=== PATIENT | male | born 1980 | race Caucasian/White ===

== ENCOUNTER 2017-01-28 18:50 | Inpatient (IN) | payer MEDICAID, OTHER ==
[~2017-01-28] VITALS: Ht 167.6 cm; Wt 91.4 kg
[~2017-01-28 18:50] MED LIST: ASPI-781 PO; ATOR20TA38 PO; CLOP75TA27 PO; METO-448 PO; NIT4 SL
[2017-01-28] MEDS ORDERED: NITROGLYCERIN 2% 1 GM OINT PKT TD STA (22:35)
[2017-01-28] MEDS ORDERED: morphine 2 MG INJ IV STA (22:35)
[2017-01-28] MEDS ORDERED: ONDANSETRON 4 MG INJ IV STA (22:35)
[2017-01-28 23:06] LABS: ADD SCAN DIFF NO
[2017-01-28 23:12] LABS: BASOPHILS % 0.3 % (0.0-2.0); EOSINOPHILS % 0.1 % (0.0-7.0); HEMATOCRIT 43.7 % (42.0-52.0); HEMOGLOBIN 15.3 g/dl (14.0-18.0); LYMPHOCYTES % 25.8 % (15.0-51.0); MEAN CORPUSCULAR HEMOGLOBIN 30.2 pg (29.0-33.0); MEAN CORPUSCULAR VOLUME 86.4 fl (82.0-101.0); MEAN PLATELET VOLUME 8.1 fl (7.4-10.4); MONOCYTE # 0.9 10^3/ul (0.3-0.9); NEUTROPHIL # 7.6 10^3/ul (1.6-7.5); NEUTROPHILS % 65.6 % (39.0-77.0); PLATELET COUNT 302 10^3/UL (140-415); RED BLOOD COUNT 5.06 10^6/ul (4.70-6.10); WHITE BLOOD COUNT 11.6 10^3/ul (4.8-10.8)
--- NOTE | 2017-01-28 23:15 | RADRPT ---
PROCEDURE: XR Chest. CLINICAL INDICATION: Chest pain. TECHNIQUE: Single frontal view of the chest was obtained COMPARISON: 11/18/2015. FINDINGS: Cardiomegaly. Portable technique, the patient body habitus and hypoinflated lungs accentuate pulmon noreen vascular markings. Lung volumes are otherwise mildly increased over interval. Decreased bibasi lar atelectasis. The lungs are otherwise clear. There is no pleural effusion or pneumothorax. IMPRESSION: Improved lung inflation with decreased bibasilar atelectasis over interval since 11/18/2015. RPTAT: [facility] Physician Davide Date Time Electronically viewed and signed by Physician Davide on 01/28/2017 23:15 RS/
[2017-01-28 23:19] LABS: INR 1.04; PARTIAL THROMBOPLASTIN TIME 29.7 Sec (25.0-35.0); PROTIME 13.6 Sec (12.2-14.2); PT RATIO 1.1
[2017-01-28 23:20] LABS: ALBUMIN 4.7 g/dl (3.3-4.9)
[2017-01-28 23:21] LABS: CHLORIDE 102 mmol/L (97-110); POTASSIUM 3.9 mmol/L (3.5-5.1); SODIUM 138 mmol/L (135-144)
[2017-01-28 23:23] LABS: ALBUMIN/GLOBULIN RATIO 1.42; ALKALINE PHOSPHATASE 86 IU/L (42-121); ANION GAP 16 (8-16); ASPARTATE AMINO TRANSFERASE 38 IU/L (15-46); BILIRUBIN,INDIRECT 0.5 mg/dl (0-1.1); BILIRUBIN,TOTAL 0.5 mg/dl (0.2-1.3); CARBON DIOXIDE 24 mmol/L (21-31); CREATININE 0.74 mg/dl (0.61-1.24)
[2017-01-28 23:24] LABS: ALANINE AMINOTRANSFERASE 30 IU/L (13-69); BLOOD UREA NITROGEN 10 mg/dl (7-20); CALCIUM 9.1 mg/dl (8.4-10.2); GLUCOSE 106 mg/dl (70-220)
[2017-01-28 23:32] LABS: B-TYPE NATRIURETIC PEPTIDE 55 PG/ML (0-125)
[2017-01-28 23:41] LABS: TROPONIN-I < 0.010 ng/ml (0.00-0.12)
[2017-01-29] VITALS (11 sets, daily range): BP systolic 118–135; BP diastolic 67–91; PULSE 64–90; RESP 12–19; TEMP 98.2; Ht 167.6 cm; Wt 91.4 kg
--- NOTE | 2017-01-29 00:17 | ERA ---
ER Documentation Chief Complaint Date/Time DATE: 01/29/17 TIME: 00:16 Chief Complaint CP SINCE 6:30. GIVEN NITRO W/ RELIEF. BILATERAL ARM NUMBNESS HPI This is a 36-year-old male who comes with chest pain since 630. Patient given some nitro mild relief. Is complaining of more numbness greater on the left side. Chest pain was pressure-like and substernal. 5 out of 10 when he had a. Down to 2 out of 10 now. Patient has history of previous cardiac stenting and history of hypercholesterolemia ROS All systems reviewed and are negative except as per history of present illness. Medications Home Meds Active Scripts Nitroglycerin* (Nitrostat*) 25 Tab Subl, 1 TAB SL Q5M Y for CHEST PAIN for 60 Days, TAB.SL Prov:CARLOS DUBOIS MD 11/22/15 Metoprolol Tartrate* (Lopressor*) 25 Mg Tab, 25 MG PO BID for 90 Days, TAB Prov:CARLOS DUBOIS MD 11/22/15 Clopidogrel Bisulfate (Clopidogrel) 75 Mg Tab, 75 MG PO DAILY for 90 Days, TAB Prov:CARLOS DUBOIS MD 11/22/15 Atorvastatin Calcium* (Atorvastatin Calcium*) 20 Mg Tab, 40 MG PO HS for 90 Days , TAB Prov:CARLOS DUBOIS MD 11/22/15 Aspirin* (Ecotrin*) 325 Mg Tabec, 325 MG PO DAILY for 90 Days, TAB Prov:CARLOS DUBOIS MD 11/22/15 Allergies Allergies: Coded Allergies: No Known Allergy (Unverified , 11/21/15) PMhx/Soc History of Surgery: No Anesthesia Reaction: Yes Hx Neurological Disorder: No Hx Respiratory Disorders: No Hx Cardiac Disorders: Yes (1 year ago NSTEMI, stent placement ) Hx Psychiatric Problems: No Hx Miscellaneous Medical Probl: No Hx Alcohol Use: Yes Hx Substance Use: No Hx Tobacco Use: No Smoking Status: Never smoker Physical Exam Vitals Vital Signs Date Time Temp Pulse Resp B/P Pulse Ox O2 Delivery O2 Flow Rate FiO2 01/28/17 23:25 98.6 68 20 120/78 100 Room Air 01/28/17 19:26 99.1 83 18 162/92 99 Physical Exam Const: [] Head: Atraumatic Eyes: Normal Conjunctiva ENT: Normal External Ears, Nose and Mouth. Neck: Full range of motion..~ No meningismus. Resp: Clear to auscultation bilaterally Cardio: Regular rate and rhythm, no murmurs Abd: Soft, non tender, non distended. Normal bowel sounds Skin: No petechiae or rashes Back: No midline or flank tenderness Ext: No cyanosis, or edema Neur: Awake and alert Psych: Normal Mood and Affect Result Diagram: 01/28/17224901/28/172249 Results 24 hrs Laboratory Tests Test 01/28/17 22:50 White Blood Count 11.610^3/ul Red Blood Count 5.0610^6/ul Hemoglobin 15.3g/dl Hematocrit 43.7% Mean Corpuscular Volume 86.4fl Mean Corpuscular Hemoglobin 30.2pg Mean Corpuscular Hemoglobin Concent 35.0g/dl Red Cell Distribution Width 12.0% Platelet Count 28238^3/UL Mean Platelet Volume 8.1fl Neutrophils % 65.6% Lymphocytes % 25.8% Monocytes % 8.0% Eosinophils % 0.1% Basophils % 0.3% Nucleated Red Blood Cells % 0.0/100WBC Neutrophils # 7.610^3/ul Lymphocytes # 3.010^3/ul Monocytes # 0.910^3/ul Eosinophils # 0.010^3/ul Basophils # 0.010^3/ul Nucleated Red Blood Cells # 0.010^3/ul Prothrombin Time 13.6Sec Prothrombin Time Ratio 1.1 INR International Normalized Ratio 1.04 Activated Partial Thromboplast Time 29.7Sec Sodium Level 138mmol/L Potassium Level 3.9mmol/L Chloride Level 102mmol/L Carbon Dioxide Level 24mmol/L Anion Gap 16 Blood Urea Nitrogen 10mg/dl Creatinine 0.74mg/dl Glucose Level 106mg/dl Calcium Level 9.1mg/dl Total Bilirubin 0.5mg/dl Direct Bilirubin 0.00mg/dl Indirect Bilirubin 0.5mg/dl Aspartate Amino Transf (AST/SGOT) 38IU/L Alanine Aminotransferase (ALT/SGPT) 30IU/L Alkaline Phosphatase 86IU/L Troponin I < 0.010ng/ml B-Type Natriuretic Peptide 55PG/ML Total Protein 8.0g/dl Albumin 4.7g/dl Globulin 3.30g/dl Albumin/Globulin Ratio 1.42 Current Medications Medications (Trade) Dose Ordered Sig/Benita Route PRN Reason Start Time Stop Time Status Last Admin Dose Admin Nitroglycerin (Nitroglycerin 2% Oint) 1 inch ONCE STAT TD 01/28/17 22:35 01/28/17 22:37 DC 01/28/17 23:16 Morphine Sulfate (morphine) 2 mg ONCE STAT IV 01/28/17 22:35 01/28/17 22:37 DC 01/28/17 23:17 Ondansetron HCl (Zofran Inj) 4 mg ONCE STAT IV 01/28/17 22:35 01/28/17 22:37 DC 01/28/17 23:16 Procedures/MDM EKG: Rate/Rhythm: Normal Sinus Rhythm QRS, ST, T-waves: No changes consistent w/ acute ischemia Impression: No evidence of ischemia or arrhythmia Chest X-ray 1V Interpreted by me: Soft Tissue: No acute abnormalities Bones: No acute abnormalities Mediastinum/Cardiac Silhouette/Lungs: No acute abnormalities Patient's symptoms are concerning for cardiac cause will require inpatient workup and continuous monitoring. Further w/u for ischemia, arrhythmia, PE or dissection will be deferred to the inpatient team. Accepting Care Team: Current data and ongoing care discussed. Time: 12 AM Primary Provider: Hospitalist Consulting: [XOXOXO] Outstanding Data: none Departure Diagnosis: Primary Impression: Chest pain Qualified Code: R07.9 - Chest pain, unspecified type Condition: Serious AICHA JOHNSON Jan 29, 2017 00:17
[2017-01-29] MEDS ORDERED: NITROGLYCERIN (SL) 0.4 MG TAB SL PRN (03:30)
[2017-01-29] MEDS ORDERED: ACETAMINOPHEN 325 MG TAB PO PRN (03:30)
[2017-01-29] MEDS ORDERED: HYDROCODONE/APAP (5/325) TAB PO PRN (03:30)
[2017-01-29] MEDS ORDERED: ONDANSETRON 4 MG TAB PO PRN (03:30)
[2017-01-29] MEDS ORDERED: morphine 4 MG/ML VIAL IV PRN (03:30)
[2017-01-29] MEDS ORDERED: NACL 0.9% 3 ML SYG IV SCH (03:30)
[2017-01-29] MEDS ORDERED: METOCLOPRAMIDE 10 MG INJ IV PRN (03:30)
[2017-01-29 05:47] LABS: ADD SCAN DIFF NO
[2017-01-29 05:56] LABS: BASOPHILS % 0.4 % (0.0-2.0); EOSINOPHILS % 0.4 % (0.0-7.0); HEMOGLOBIN 14.4 g/dl (14.0-18.0); LYMPHOCYTES # 2.3 10^3/ul (0.8-2.9); LYMPHOCYTES % 27.2 % (15.0-51.0); MEAN CORPUSCULAR HGB CONC 35.1 g/dl (32.0-37.0); MEAN CORPUSCULAR VOLUME 88.2 fl (82.0-101.0); MEAN PLATELET VOLUME 8.2 fl (7.4-10.4); MONOCYTE # 0.7 10^3/ul (0.3-0.9); MONOCYTES % 8.7 % (0.0-11.0); NEUTROPHIL # 5.3 10^3/ul (1.6-7.5); NEUTROPHILS % 63.2 % (39.0-77.0); PLATELET COUNT 268 10^3/UL (140-415); RED BLOOD COUNT 4.65 10^6/ul (4.70-6.10); RED CELL DISTRIBUTION WIDTH 12.3 % (11.5-14.5); WHITE BLOOD COUNT 8.4 10^3/ul (4.8-10.8)
[2017-01-29 06:20] LABS: POTASSIUM 3.7 mmol/L (3.5-5.1)
[2017-01-29 06:23] LABS: CALCIUM 8.6 mg/dl (8.4-10.2); CREATINE KINASE 128 IU/L (23-200); CREATININE 0.78 mg/dl (0.61-1.24)
[2017-01-29 06:24] LABS: MAGNESIUM 1.8 mg/dl (1.7-2.5)
[2017-01-29 06:32] LABS: CK-MB 0.66 ng/ml (0.0-2.4); TROPONIN-I < 0.012 ng/ml (0.00-0.12)
[2017-01-29] MEDS: ENOXAPARIN 40 MG/0.4 ML SYG SC SCH (10:33)
[2017-01-29 12:30] LABS: CREATINE KINASE 116 IU/L (23-200)
[2017-01-29 12:39] LABS: CK-MB 0.46 ng/ml (0.0-2.4)
[2017-01-29] MEDS: FAMOTIDINE 20 MG TAB PO SCH ×2 (12:41→20:52)
[2017-01-29] MEDS: METOPROLOL 25 MG TAB PO SCH ×2 (12:41→20:52)
[2017-01-29 12:48] LABS: TROPONIN-I < 0.010 ng/ml (0.00-0.12)
[2017-01-29] MEDS ORDERED: FUROSEMIDE 20 MG INJ IV ONE (14:30)
--- NOTE | 2017-01-29 17:35 | CONS ---
DATE OF ADMISSION: 01/29/2017 DATE OF CONSULTATION: 01/29/2017 CARDIOLOGY CONSULTATION REASON FOR CONSULTATION: Chest pain, assess for acute coronary syndrome. REQUESTING PHYSICIAN: Dr. Martines from the hospitalist service. HISTORY OF PRESENT ILLNESS: Mr. Britt is a 36-year-old male with a history of prior myocardial inf arction, status post PTCA and stent placement to [place] with drug-eluting stent 11/22/2015, hypert ension, and dyslipidemia who presents with complaints of left-sided substernal chest pain described as a stabbing sensation with associated radiation to his left arm. Initially, upon arrival, tempera ture of 99.1, blood pressure elevated at 162/92, pulse 83, respiratory rate 18, saturating 99%. The patient's labs revealed a white blood cell count of 11.6, hemoglobin of 15.3, platelet count of 302 . Sodium 138, potassium 3.9, creatinine of 0.74, BUN 10. Troponin negative. BNP of 55. INR of 1. 0. The patient underwent a chest x-ray revealing improved lung inflation and decreased bibasilar at electasis. The patient's electrocardiogram revealed normal sinus rhythm, rate of 79, right axis dev iation, and T-wave flattening isolated to aVL. The patient was subsequently admitted to the floor a nd since admit to the floor denies ongoing chest pain. PAST MEDICAL HISTORY: As above in HPI. MEDICATIONS CURRENTLY IN HOSPITAL: 1. Aspirin 81 mg daily. 2. Plavix 75 mg daily. 3. Lipitor 40 mg at bedtime. 4. Pepcid 20 mg p.o. b.i.d. 5. Metoprolol 25 mg p.o. b.i.d. 6. Lovenox 40 mg subcu daily. 7. Nitroglycerin p.r.n. 8. Tylenol p.r.n. 9. [place] p.r.n. 10. Morphine p.r.n. ALLERGIES: NO KNOWN DRUG ALLERGIES. SOCIAL HISTORY: No tobacco, ETOH, or illicit drug use. FAMILY HISTORY: No history of sudden cardiac or early CAD. REVIEW OF SYSTEMS: As above in HPI. CONSTITUTIONAL: No fevers, chills. PULMONARY: No current shortness of breath. CARDIOVASCULAR: Intermittent chest pain. GASTROINTESTINAL: No vomiting. GENITOURINARY: No hematuria. MUSCULOSKELETAL: Degenerative joint disease. PSYCHIATRIC: The patient denies depression. NEUROLOGIC: No documented history of CVA. PHYSICAL EXAMINATION VITAL SIGNS: Temperature of 98.6, blood pressure most recently of 118/67, pulse 85, respiratory rat e 18, saturating 98%. GENERAL: The patient is alert, awake, in no acute distress. NECK: JVP approximately 8 cm of water. CHEST: Fair air movement throughout. HEART: Regular rate and rhythm, normal S1, S2, I/ systolic murmur, nondisplaced PMI. ABDOMEN: Positive bowel sounds, soft. EXTREMITIES: No edema, 1+ pulses bilaterally, posterior tibial. LABORATORY DATA: As above in HPI. No further labs for my review at this time. Additionally from [facility], white cell count of 8.4, hemoglobin 14.4, platelet count 268. Sodium 141, potassium 3.7, crea tinine 0.78, BUN 12. INR 1.0. IMAGING STUDIES: As above in HPI. No further imaging studies for my review at this time. ECG: As above in HPI. No further electrocardiograms for my review at this time. IMPRESSION: 1. Chest pain, assess for acute coronary syndrome. 2. History of percutaneous transluminal coronary angioplasty and stent placement October 2015 with drug-eluting stent to diagonal. Assess for acute coronary syndrome. 3. Hypertension. 4. Dyslipidemia. 5. History of myocardial infarction in October 2015. RECOMMENDATIONS: 1. At this time, would maintain the patient on telemetry monitoring to follow rhythm and rate contr ol closely. 2. Would continue the patient's current aspirin and Plavix for stent patency and prevention of furt her cardiovascular events. 3. Continue the patient's current beta blayen following blood pressure closely. 4. Continue the patient's current statin and check fasting lipid panel and adjust accordingly. 5. We will follow the patient's 2D echo being done to assess ejection fraction, wall motion, and an y major valve abnormalities and given the patient's history of stent placement with recurrent chest pain and myocardial infarction, I believe the patient would benefit from further risk stratification as an inpatient and thus will be scheduled to have a Lexiscan stress test take place first thing in the morning. Thank you for allowing me to take part in the care of this patient. I will continue to follow along very closely with you with further recommendations to be made as the patient progresses through his inpatient hospital clinical course. Dictated By: MARIANNA COWAN/MORALES Conf#: [id number] DID#: [id number] CC: SHERINE MARTINES MD;*End*
--- NOTE | 2017-01-29 17:50 | RADRPT ---
Echocardiogram Report Patient Name: KAR RADER Gender: Male Date: 1980 Study Date: 29-Jan-2017 Spa Associate: [facility] Location: [id number] Ref. Physician: SHERINE MARTINES Quality: Adequate Procedures: Transthoracic echocardiogram with complete 2D, M-Mode, and doppler examination. Indications: Chest Pain. 2D/M Mode Doppler Measurement Value Normal Ranges Measurement Value Normal Ranges LVIDd 2D 4.5 3.5 - 5.6 cm AV Peak Rene 1.6 m/sec LVIDs 2D 2.7 2.1 - 4.1 cm AV Peak PG 10.0 mmHg FS 2D 41.1 % LVOT Peak Rene 0.9 m/sec LVPWd 2D 1.3 0.6 - 1.1 cm LVOT Peak PG 4.0 mmHg IVSd 2D 1.3 0.6 - 1.1 cm MV E Peak Rene 0.7 m/sec IVS/LVPW 2D 1.0 MV A Peak Rene 0.7 m/sec AoR Diam 2D 2.7 2.0 - 3.7 cm MV E/A 1.0 LA/Ao 2D 1 0 - 1 MV Decel Time 173 msec EDV 2D 91.1 cm3 MV E/A 1.0 ESV 2D 18.6 cm3 LA Dimen 2D 3.3 2.3 - 4.0 cm Findings Left Ventricle: Normal left ventricular systolic function. Normal left ventricular cavity size. Mild concentric left ventricular hypertrophy. Ejection fraction is visually estimated at 60 %. Abnormal Diastolic Function. Right Ventricle: Normal right ventricular size. Normal right ventricular systolic function. Left Atrium: The left atrium is normal in size. Right Atrium: The right atrium is normal in size. Mitral Valve: Mild mitral leaflet calcification. Mild mitral annular calcification. Trace mitral regurgitation. Aortic Valve: Aortic valve not well visualized. Tricuspid Valve: Normal appearance and function of the tricuspid valve with trace physiologic regurgitation. Pulmonic Valve: There is trace pulmonic regurgitation. Pericardium: Normal pericardium with no significant pericardial effusion. Aorta: Normal aortic root. IVC: Normal size and normal respiratory collapse consistent with normal right atrial pressure. Conclusions 1.Normal left ventricular systolic function. Normal left ventricular cavity size. Mild concentric left ventricular hypertrophy. Ejection fraction is visually estimated at 60 %. Abnormal Diastolic Function. 2.Mild mitral leaflet calcification. Mild mitral annular calcification. Trace mitral regurgitation. 3.Normal appearance and function of the tricuspid valve with trace physiologic regurgitation. 4.There is trace pulmonic regurgitation. Electronically Signed By: Charles Perez 29-Jan-2017 17:49:32 -0700 Patient Name: KAR RADER Study Date: 29-Jan-2017 [id number]
[2017-01-29] MEDS: ATORVASTATIN 40 MG TAB PO SCH (20:51)
[2017-01-30] VITALS (11 sets, daily range): BP systolic 115–132; BP diastolic 68–93; PULSE 53–80; RESP 18–19
[2017-01-30 08:34] LABS: CHOL/HDL RATIO 3.3 RATIO
[2017-01-30] MEDS: ENOXAPARIN 40 MG/0.4 ML SYG SC SCH (09:12)
[2017-01-30] MEDS ORDERED: REGADENOSON 0.4 MG/5 ML SYG ONE (10:48)
--- NOTE | 2017-01-30 11:42 | CONS ---
Date/Time of Note Date/Time of Note DATE: 01/30/17 TIME: 11:38 Assessment/Plan Assessment/Plan Chief Complaint/Hosp Course IMPRESSION: 1. Chest pain, assess for acute coronary syndrome.-negative troponin x3/NL EF by echo 2. History of percutaneous transluminal coronary angioplasty and stent placement October 2015 with drug-eluting stent to diagonal.-negative troponin x 3 3. Hypertension. 4. Dyslipidemia. 5. History of myocardial infarction in October 2015. Recc: -Tele -serial ecg's -Continue asa/plavix/statin/BB -Lexiscan stress test today Problems: Consultation Date/Type/Reason Admit Date/Time Jan 29, 2017 at 00:08 Initial Consult Date 01/29/2017 Type of Consultation: Cardiology Reason for Consultation Chest pain Referring Provider: ADAM GOVEA MD Exam/Review of Systems Vital Signs Vitals Vital Signs Date Time Temp Pulse Resp B/P Pulse Ox O2 Delivery O2 Flow Rate FiO2 01/30/17 08:00 53 01/30/17 07:37 98.4 18 116/74 96 01/29/17 07:03 Room Air Intake and Output 01/29/17 01/29/17 01/30/17 15:00 23:00 07:00 Intake Total 700 ml 500 ml Balance 700 ml 500 ml Exam Review of Systems: CONSTITUTIONAL: No fevers, chills. PULMONARY: No sob CARDIOVASCULAR: No chest pain/palpitations GASTROINTESTINAL: No nausea/vomiting. GENITOURINARY: No hematuria/dysuria. MUSCULOSKELETAL: No myagias/arthalgias. PSYCHIATRIC: The patient denies depression. NEUROLOGIC: No weakness Constitutional: alert, oriented Psych: no complaints Head: normocephalic ENMT: mucosa pink and moist Neck: jvd (8 cm water), supple Respiratory: diminished breath sounds Cardiovascular: regular rate and rhythm Gastrointestinal: non-tender, soft Musculoskeletal: muscle tone (normal) Extremities: edema (none) Neurological: other (No focal deficits) Results Result Diagram: 01/29/17 0525 01/29/17 0525 Results 24 hrs Laboratory Tests Test 01/29/17 11:40 01/30/17 07:19 Creatine Kinase 116 Creatine Kinase Index 0.4 Creatinine Kinase MB (Mass) 0.46 Troponin I < 0.010 Triglycerides Level 342 H Cholesterol Level 129 LDL Cholesterol, Calculated 23 HDL Cholesterol 38 Cholesterol/HDL Ratio 3.3 Medications Medications Current Medications Ondansetron HCl (Zofran Tab) 4 mg Q6H PRN PO NAUSEA AND/OR VOMITING; Start 01/29 at 03:30 Metoclopramide HCl (Reglan) 10 mg Q6H PRN IV NAUSEA AND/OR VOMITING Last administered on 01/29/17 07:59; Admin Dose 10 MG; Start 01/29/17 at 03:30 Nitroglycerin (Nitroglycerin (Sl Tab) 0.4 Mg) 1 tab Q5M PRN SL CHEST PAIN; Start 01/29/17 at 03:30 Acetaminophen (Tylenol Tab) 650 mg Q6H PRN PO PAIN LEVEL 1-3 OR FEVER Last administered on 01/29/17 16:09; Admin Dose 650 MG; Start 01/29/17 at 03:30 Acetaminophen/ Hydrocodone Bitart ([place] (5/325)) 1 tab Q6H PRN PO PAIN LEVEL 4 -6 Last administered on 01/29/17 05:13; Admin Dose 1 TAB; Start 01/29/17 at 03:30 Morphine Sulfate (morphine) 4 mg Q4H PRN IV PAIN LEVEL 7-10; Start 01/29/17 at 03:30 Enoxaparin Sodium (Lovenox) 40 mg DAILY SC Last administered on 01/30/17 09:12 ; Admin Dose 40 MG; Start 01/29/17 at 09:00 Famotidine (Pepcid) 20 mg BID PO Last administered on 01/29/17 20:52; Admin Dose 20 MG; Start 01/29/17 at 12:00 Aspirin (Halfprin) 81 mg DAILY PO ; Start 01/30/17 at 09:00 Atorvastatin Calcium (Lipitor) 40 mg HS PO Last administered on 01/29/17 20:51 ; Admin Dose 40 MG; Start 01/29/17 at 21:00 Clopidogrel Bisulfate (plaVIX) 75 mg DAILY PO ; Start 01/30/17 at 09:00 Metoprolol Tartrate (Lopressor) 25 mg BID PO Last administered on 01/29/17 20: 52; Admin Dose 25 MG; Start 01/29/17 at 12:00 MARIANNA ECHOLS Jan 30, 2017 11:42
--- NOTE | 2017-01-30 12:15 | CONS ---
DATE OF ADMISSION: 01/29/2017 DATE OF CONSULTATION: 01/30/2017 LEXISCAN CARDIOLITE STRESS TEST, ELECTROCARDIOGRAM PORTION BASELINE VITAL SIGNS AND ELECTROCARDIOGRAM: Pulse 64, blood pressure 150/92. Electrocardiogram rev eals sinus rhythm, rate of 64, normal axis, normal intervals, isolated T-wave inversion in lead aVL. PROCEDURE: The patient underwent standard Lexiscan infusion protocol over 10 seconds, followed by r adiolabeled tracer. The patient's test was stopped due to completion of protocol. Maximum achieved blood pressure 153/88. Maximum achieved heart rate during the test 98. ECG FINDINGS: The patient did not develop any new Lexiscan-induced ST or T-wave changes from baseli ne abnormalities. No documented PVCs. SYMPTOMS: The patient had no complaints of chest pain or shortness breath during stress testing. IMPRESSION: 1. No Lexiscan-induced ST or T-wave changes from baseline abnormalities which are diagnostic for ca rdiac ischemia. 2. No complaints of chest pain or shortness of breath during stress testing. 3. No documented premature ventricular contractions during stress testing. 4. Report of nuclear images to follow in separate dictation. Dictated By: MARIANNA COWAN/MORALES Conf#: [id number] DID#: [id number] CC: ADAM GOVEA MD;*EndCC*
--- NOTE | 2017-01-30 14:18 | RADRPT ---
PROCEDURE: Nuclear medicine myocardial stress and rest scan. CLINICAL INDICATION: Chest pain. TECHNIQUE: The patient was stressed with 0.4 mg IV Lexiscan. 9.6 mCi technetium 99m Tetrofosmin ( Myoview) was administered rest. 28.7 mCi technetium 99m Tetrofosmin (Myoview) was administered dur ing stress. Images were obtained and reconstructed in the short axis, horizontal long axis, and tiffani tical long axis. Gated images were obtained and ejection fraction was calculated. COMPARISON: No prior study is available for comparison. FINDINGS: The stress and rest images demonstrate a small region of reversibility in the mid anterior wall. Th e uptake there is otherwise normal throughout with no other reversible or fixed abnormality. The lef t ventricle diameter is normal. There is no evidence of transient ischemic dilatation. Wall motion is normal. There is normal wall thickening during systole. Ejection fraction at stress is 55%. IMPRESSION: 1. Small region of reversibility in the mid anterior wall which may indicate stress induced myocard ial ischemia. 2. Otherwise normal study with no other region of ischemia or infarct. 3. Ejection fraction at stress is 55%. RPTAT: QQ .Ricardo Bourne MD, Date Time Electronically viewed and signed by .Ricardo Bourne MD, on 01/30/2017 14:18 .R/
[2017-01-30] MEDS ORDERED: METO-448 PO (15:22)
[2017-01-30] MEDS ORDERED: ATOR20TA38 PO (15:22)
[2017-01-30] MEDS ORDERED: ASPI-664 PO (15:22)
[2017-01-30] MEDS ORDERED: CLOP75TA27 PO (15:22)
--- NOTE | 2017-01-30 15:41 | PN ---
Date/Time of Note Date/Time of Note DATE: 01/30/17 TIME: 15:37 Assessment/Plan VTE Prophylaxis VTE Prophylaxis Intervention: LMWH Lines/Catheters IV Catheter Type (from Nrsg): Saline Lock Assessment/Plan Assessment/Plan 1. 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 Dyslipidemia: cont statin 3. Obesity: calorie controlled diet Cont supportive care Propylaxis: lovenox / pepcid Subjective 24 Hr Interval Summary Free Text/Dictation had mild CP upon cmpletion of stress test Exam/Review of Systems Vital Signs Vitals Vital Signs Date Time Temp Pulse Resp B/P Pulse Ox O2 Delivery O2 Flow Rate FiO2 01/30/17 13:20 66 01/30/17 07:37 98.4 18 116/74 96 01/29/17 07:03 Room Air Intake and Output 01/29/17 01/29/17 01/30/17 14:59 22:59 06:59 Intake Total 700 ml 500 ml Balance 700 ml 500 ml Exam Constitutional: alert, obese, oriented Head: atraumatic, normocephalic Eyes: PERRL ENMT: mucosa pink and moist Neck: supple Respiratory: clear to auscultation, normal air movement Cardiovascular: nl pulses, regular rate and rhythm Gastrointestinal: bowel sounds, non-tender, soft Extremities: No edema Neurological: nl mental status, nl speech, nl strength Results Result Diagram: 01/29/17 0525 01/29/17 0525 Results 24 hrs Laboratory Tests Test 01/30/17 07:19 Triglycerides Level 342 H Cholesterol Level 129 LDL Cholesterol, Calculated 23 HDL Cholesterol 38 Cholesterol/HDL Ratio 3.3 Medications Medications Current Medications Ondansetron HCl (Zofran Tab) 4 mg Q6H PRN PO NAUSEA AND/OR VOMITING; Start 01/29 at 03:30 Metoclopramide HCl (Reglan) 10 mg Q6H PRN IV NAUSEA AND/OR VOMITING Last administered on 01/29/17t 07:59; Admin Dose 10 MG; Start 01/29/17 at 03:30 Nitroglycerin (Nitroglycerin (Sl Tab) 0.4 Mg) 1 tab Q5M PRN SL CHEST PAIN; Start 01/29/17 at 03:30 Acetaminophen (Tylenol Tab) 650 mg Q6H PRN PO PAIN LEVEL 1-3 OR FEVER Last administered on 01/29/17 16:09; Admin Dose 650 MG; Start 01/29/17 at 03:30 Acetaminophen/ Hydrocodone Bitart ([place] (5/325)) 1 tab Q6H PRN PO PAIN LEVEL 4 -6 Last administered on 01/29/17 05:13; Admin Dose 1 TAB; Start 01/29/17 at 03:30 Morphine Sulfate (morphine) 4 mg Q4H PRN IV PAIN LEVEL 7-10; Start 01/29/17 at 03:30 Enoxaparin Sodium (Lovenox) 40 mg DAILY SC Last administered on 01/30/17 09:12 ; Admin Dose 40 MG; Start 01/29/17 at 09:00 Famotidine (Pepcid) 20 mg BID PO Last administered on 01/29/17 20:52; Admin Dose 20 MG; Start 01/29/17 at 12:00 Aspirin (Halfprin) 81 mg DAILY PO ; Start 01/30/17 at 09:00 Atorvastatin Calcium (Lipitor) 40 mg HS PO Last administered on 01/29/17 20:51 ; Admin Dose 40 MG; Start 01/29/17 at 21:00 Clopidogrel Bisulfate (plaVIX) 75 mg DAILY PO ; Start 01/30/17 at 09:00 Metoprolol Tartrate (Lopressor) 25 mg BID PO Last administered on 01/29/17 20: 52; Admin Dose 25 MG; Start 01/29/17 at 12:00 Procedures Procedures PROCEDURE: Nuclear medicine myocardial stress and rest scan. CLINICAL INDICATION: Chest pain. TECHNIQUE: The patient was stressed with 0.4 mg IV Lexiscan. 9.6 mCi technetium 99m Tetrofosmin (Myoview) was administered rest. 28.7 mCi technetium 99m Tetrofosmin (Myoview) was administered during stress. Images were obtained and reconstructed in the short axis, horizontal long axis, and vertical long axis. Gated images were obtained and ejection fraction was calculated. COMPARISON: No prior study is available for comparison. FINDINGS: The stress and rest images demonstrate a small region of reversibility in the mid anterior wall. The uptake there is otherwise normal throughout with no other reversible or fixed abnormality. The left ventricle diameter is normal. There is no evidence of transient ischemic dilatation. Wall motion is normal. There is normal wall thickening during systole. Ejection fraction at stress is 55%. IMPRESSION: 1. Small region of reversibility in the mid anterior wall which may indicate stress induced myocardial ischemia. 2. Otherwise normal study with no other region of ischemia or infarct. 3. Ejection fraction at stress is 55%. RPTAT: QQ .Ricardo Bourne MD, MD Date Time Electronically viewed and signed by .Ricardo Bourne MD, MD on 01/30/2017 14:18 .R/ CC: MARIANNA ECHOLS [place] M. Jan 30, 2017 15:41
[2017-01-30] MEDS: FAMOTIDINE 20 MG TAB PO SCH ×2 (17:26→20:52)
[2017-01-30] MEDS: CLOPIDOGREL 75 MG TAB PO SCH (17:26)
[2017-01-30] MEDS: METOPROLOL 25 MG TAB PO SCH ×2 (17:27→20:53)
[2017-01-30] MEDS: ASPIRIN (EC) 81 MG TAB PO SCH (17:27)
--- NOTE | 2017-01-30 19:58 | HP ---
Date/Time of Note Date/Time of Note DATE: 01/30/17 TIME: 19:58 Assessment/Plan VTE Prophylaxis VTE Prophylaxis Intervention: other (Lovenox) Lines/Catheters IV Catheter Type (from Nrsg): Saline Lock Assessment/Plan Assessment/Plan 1) Chest Pain - Admit to Telemetry - Serial Cardiac Enzymes - Repeat EKG in AM - CONSULT: Cardiology HPI/ROS Admit Date/Time Admit Date/Time Jan 29, 2017 at 00:08 Hx of Present Illness This is a 36-year-old male who presents with chest pain since 630 pm. THe pain is not quite the same as what he had prior to undergoing Cardiac Stent Placement in 10/2015. NTG provided some relief, and on my arrival, his chest pain, which he describes as more of a pressure is 4-5/10. Initially, the pain was 10/10, associated with sewating and nausea. No radiation of the pain. The arm numbness he initially had has resolved. Prior to this event, he was in his usual state of health ROS General: Admits: Denies: Fever, Chills, Poor Appetite, Generalized Body Aches Eyes: Admits: Denies: Blurry Vision, Double Vision HENT: Admits: Denies: Ear Pain/Pressure, Runny/Stuffy Nose, Sore Throat Cardiovascular: Admits: Chest Pain, Denies: Palpitations, Leg Swelling Pulmonary: Admits: Denies: Cough, Wheeze, Shortness of Breath Gastrointestinal: Admits: Denies: Abdominal Pain, Nausea, Vomiting, Diarrhea, Blood in Stool, Black-Colored Stool Urogenital: Admits: Denies: Burning with Urination, Urinary Frequency, Blood in Urine Musculoskeletal: Admits: Denies: Joint Pain, Joint Swelling, Muscle Pain Neurological: Admits: Numbness, resolved Denies: Headache, Dizziness, Tingling, Shooting Pains Integumentary: Admits: Denies: Rash, Itch Psychological: no complaints PMH/Family/Social Past Medical History NSTAEMI - 10/2015 No Diabetes Past Surgical History Cardiac Stent Placement - 10/2015 Social History Alcohol Use: occasionally Smoking Status: Never smoker Drug Use: none Exam/Review of Systems Vital Signs Vitals Vital Signs Date Time Temp Pulse Resp B/P Pulse Ox O2 Delivery O2 Flow Rate FiO2 01/30/17 16:00 74 01/30/17 15:43 98.2 18 130/93 95 01/29/17 07:03 Room Air Intake and Output 01/29/17 01/29/17 01/30/17 15:00 23:00 07:00 Intake Total 700 ml 500 ml Balance 700 ml 500 ml Exam Exam General: WD/WN male, alert and oriented, in mild distress due to pain and concern for situation Eyes: Sclera White, EOMI HENT: Normocephalic/Atraumatic, External Ears/Nose Normal, Moist Mucus Membranes Neck: Supple, Trachea Midline Cardiovascular: Normal Rate, Regular Rhythm, Normal S1 and S2, No Murmur, No Extra Sounds. Radial pulse +2/4. No pedal Edema. Pulmonary: Clear to Auscultation Bilaterally, Normal Respiratory Effort, No Rales, Rhonchi or Wheezes Gastrointestinal: Normoactive Bowel Sounds, Soft, Non-Tender/Non-Distended, No Hepatosplenomegaly Appreciated, No Pulsatile Masses Urogenital: Deferred Musculoskeletal: Normal Muscle Bulk and Tone Neurological: CN II - XII Grossly Intact, Non-Focal, Speech Normal Integumentary: Normal Moisture and Temperature, Good Turgor, No Jaundice, No Rash Lymphatic: No Cervical Lymphadenopathy Psychiatric: Appropriate Mood and Affect, Good Eye Contact Labs Result Diagram: 01/29/1752401/29/17 05 Medications Medications Home Meds Active Scripts Nitroglycerin* (Nitrostat*) 25 Tab Subl, 1 TAB SL Q5M Y for CHEST PAIN for 60 Days, TAB.SL Prov:CARLOS DUBOIS MD 11/22/15 Metoprolol Tartrate* (Lopressor*) 25 Mg Tab, 25 MG PO BID for 90 Days, TAB Prov:CARLOS DUBOIS MD 11/22/15 Clopidogrel Bisulfate (Clopidogrel) 75 Mg Tab, 75 MG PO DAILY for 90 Days, TAB Prov:CARLOS DUBOIS MD 11/22/15 Atorvastatin Calcium* (Atorvastatin Calcium*) 20 Mg Tab, 40 MG PO HS for 90 Days , TAB Prov:CARLOS DUBOIS MD 11/22/15 Aspirin* (Ecotrin*) 325 Mg Tabec, 325 MG PO DAILY for 90 Days, TAB Prov:CARLOS DUBOIS MD 11/22/15 Current Medications Medications (Trade) Dose Ordered Sig/Benita Route PRN Reason Start Time Stop Time Status Last Admin Dose Admin Nitroglycerin (Nitroglycerin 2% Oint) 1 inch ONCE STAT TD 01/28/17 22:35 01/28/17 22:37 DC 01/28/17 23:16 Morphine Sulfate (morphine) 2 mg ONCE STAT IV 01/28/17 22:35 01/28/17 22:37 DC 01/28/17 23:17 Ondansetron HCl (Zofran Inj) 4 mg ONCE STAT IV 01/28/17 22:35 01/28/17 22:37 DC 01/28/17 23:16 Procedures Procedures Laboratory Tests Test 01/28/17 22:50 White Blood Count 11.610^3/ul Red Blood Count 5.0610^6/ul Hemoglobin 15.3g/dl Hematocrit 43.7% Mean Corpuscular Volume 86.4fl Mean Corpuscular Hemoglobin 30.2pg Mean Corpuscular Hemoglobin Concent 35.0g/dl Red Cell Distribution Width 12.0% Platelet Count 04061^3/UL Mean Platelet Volume 8.1fl Neutrophils % 65.6% Lymphocytes % 25.8% Monocytes % 8.0% Eosinophils % 0.1% Basophils % 0.3% Nucleated Red Blood Cells % 0.0/100WBC Neutrophils # 7.610^3/ul Lymphocytes # 3.010^3/ul Monocytes # 0.910^3/ul Eosinophils # 0.010^3/ul Basophils # 0.010^3/ul Nucleated Red Blood Cells # 0.010^3/ul Prothrombin Time 13.6Sec Prothrombin Time Ratio 1.1 INR International Normalized Ratio 1.04 Activated Partial Thromboplast Time 29.7Sec Sodium Level 138mmol/L Potassium Level 3.9mmol/L Chloride Level 102mmol/L Carbon Dioxide Level 24mmol/L Anion Gap 16 Blood Urea Nitrogen 10mg/dl Creatinine 0.74mg/dl Glucose Level 106mg/dl Calcium Level 9.1mg/dl Total Bilirubin 0.5mg/dl Direct Bilirubin 0.00mg/dl Indirect Bilirubin 0.5mg/dl Aspartate Amino Transf (AST/SGOT) 38IU/L Alanine Aminotransferase (ALT/SGPT) 30IU/L Alkaline Phosphatase 86IU/L Troponin I < 0.010ng/ml B-Type Natriuretic Peptide 55PG/ML Total Protein 8.0g/dl Albumin 4.7g/dl Globulin 3.30g/dl Albumin/Globulin Ratio 1.42 EKG: Interpreted by ER Physician. I concur. Rate/Rhythm: Normal Sinus Rhythm QRS, ST, T-waves: No changes consistent w/ acute ischemia Impression: No evidence of ischemia or arrhythmia PROCEDURE: XR Chest. CLINICAL INDICATION: Chest pain. TECHNIQUE: Single frontal view of the chest was obtained COMPARISON: 11/18/2015. IMPRESSION: Improved lung inflation with decreased bibasilar atelectasis over interval since 11/18/2015. DANILO MATHUR DO Jan 30, 2017 19:58
[2017-01-30] MEDS: ATORVASTATIN 40 MG TAB PO SCH (20:52)
[2017-01-31] VITALS (54 sets, daily range): BP systolic 110–141; BP diastolic 67–96; PULSE 56–80; RESP 15–25
[2017-01-31] MEDS ORDERED: NITROGLYCERIN (IC) 100 MCG/ML INJ ONE (08:02)
[2017-01-31] MEDS ORDERED: IODIXANOL LOCM 100 ML BTL ONE (08:02)
[2017-01-31] MEDS ORDERED: HEPARIN 1000 UNITS/ML 10 ML INJ ONE (08:02)
[2017-01-31] MEDS ORDERED: LIDOCAINE 1% (MDV) 20 ML INJ ONE (08:02)
[2017-01-31] MEDS ORDERED: VERAPAMIL 5 MG INJ ONE (08:02)
[2017-01-31] MEDS ORDERED: FENTAnyl 50 MCG/ML VIAL ONE (08:03)
[2017-01-31] MEDS ORDERED: MIDAZOLAM 1 MG/ML 2 ML INJ ONE (08:03)
[2017-01-31] MEDS: FAMOTIDINE 20 MG TAB PO SCH ×2 (09:00→20:33)
[2017-01-31] MEDS: ENOXAPARIN 40 MG/0.4 ML SYG SC SCH (09:00)
[2017-01-31] MEDS: CLOPIDOGREL 75 MG TAB PO SCH (09:00)
[2017-01-31] MEDS: ASPIRIN (EC) 81 MG TAB PO SCH (09:00)
[2017-01-31] MEDS: METOPROLOL 25 MG TAB PO SCH ×2 (09:00→20:33)
[2017-01-31] MEDS ORDERED: BIVALIRUDIN 250MG /NS 50 ML 50 ML IVPB ONE (10:00)
[2017-01-31] MEDS ORDERED: ADENOSINE 90 MG in SOD CHLORIDE 0.9% 90 ML IV SCH (10:00)
[2017-01-31] MEDS ORDERED: CLOPIDOGREL 300 MG TAB ONE (10:07)
[2017-01-31] MEDS ORDERED: ASPIRIN 325 MG TAB ONE (10:07)
[2017-01-31] MEDS ORDERED: SOD CHLORIDE 0.9% 1,000 ML IV SCH (10:52)
[2017-01-31] MEDS ORDERED: ACETAMINOPHEN 325 MG TAB PO PRN (11:00)
[2017-01-31] MEDS ORDERED: OXYCODONE/ACETAMINOPHEN (5/325) TAB PO PRN (11:00)
[2017-01-31] MEDS ORDERED: ZOLPIDEM 5 MG TAB PO PRN (11:00)
--- NOTE | 2017-01-31 12:05 | CONS ---
DATE OF ADMISSION: 01/29/2017 DATE OF CONSULTATION: 01/30/2017 TYPE OF PROCEDURE: 1. Left heart catheterization. 2. Coronary angiography. 3. Percutaneous transluminal coronary angioplasty with placement of Synergy stents x2, a 3.0 x 32 m m and 3.5 x 20 mm. 4. Measurement of left ventricular end-diastolic pressure. ATTENDING PHYSICIAN: Marianna Perez MD REFERRING PHYSICIAN: Sherine Martines MD from the hospitalist service. INDICATION: Chest pain refractory to medical therapy with positive stress test findings for ischemi a. TYPE OF ANESTHESIA: Conscious and local. BRIEF HISTORY AND HOSPITAL COURSE: Mr. Britt is a 36-year-old male with a history of hypertension, dyslipidemia, coronary artery disease, status post prior PTCA to diagonal, who initially presented with complaints of recurrent substernal chest pain. The patient subsequently ruled out for myocardi al infarction, underwent a cardiac stress test revealing positive ischemia. Given these findings, t he patient referred for and presents today in order to undergo left heart catheterization to assess the possibility of significant obstructive coronary artery disease lending to his symptoms of chest pain and subsequent positive stress test findings. PROCEDURE: After informed consent was obtained, the patient was brought to the [facility] cardiac catheterization lab where his right radial area was prepped and draped in the usual fashion. Lidocaine 2% was infiltrated into the right radial area in order to achieve adequate anes thesia. Using modified Seldinger technique, the radial artery was cannulated and a 6-Zimbabwean arteria l sheath was placed. A 6-Zimbabwean JL3.5 catheter was used to cannulate the left main coronary ostium. With contrast injection, multiple views of the left coronary arterial system obtained. JL3 removed over a guidewire and a JR4 was used to cannulate the right coronary arterial ostium. With contrast injection, multiple views of the right coronary arterial system obtained. JR4 was then used to microstrategy architect developer ss the LV. Left ventricular end-diastolic pressure was measured, pulled back across the aortic valv e. Subsequently, at this time, given the findings of significant obstructive lesions in the right c oronary artery, we moved directly into our interventional procedure. The patient was given an Angio max bolus continuous infusion. A JR3.5 was used to cannulate the right coronary arterial ostium. A 0.014 Balance Middleweight guidewire was passed distal to the lesion. The lesion was pretreated wit h a 2.0 x 20 mm balloon up to 16 to 18 atmospheres x2 and removed. The lesion was then stented with a 3.0 x 32 mm drug-eluting stent to 16 atmospheres x2 and then post-dilated with a noncompliant Nancy rge 3.5 x 12 mm up to 16 to 18 atmospheres x2. Pre-inflation was then made in the proximal portion with a 3.5 balloon on removal, and then this proximal lesion was stented with a 3.5 x 20 mm drug-elu ting stent up to 16 atmospheres x2 and post-dilated with a noncompliant 3.75 up to 18 atmospheres x2 . This was removed. The patient was given 200 mcg of IC nitroglycerin. Followup angiogram was obt ained revealing excellent result, deployment of both stents, KENNETH 3 flow throughout the vessel, no s igns of complication including perforation or dissection. Subsequently, at this time, the intervent ional guide and guidewire were removed. The patient's sheath was applied. A TR band was applied. There were no noted complications. At the completion of the procedure, the patient was given 300 mg of p.o. Plavix and 325 mg of aspirin. FINDINGS: Coronary angiography: Left main 5 mm, no significant stenoses. Circumflex proximally is a 3.5 mm v essel and in its distal portion has a 50% to 60% stenosis. There is a mid branching obtuse marginal 2.5 mm with a mid body 40% to 50% stenosis. The LAD proximally is a 3.5 mm vessel and in its mid p ortion has an eccentric-appearing 50% to 60% stenosis. The LAD then has a very distal lesion, 30% i n the distal portion. There is a diagonal branching proximally off the vessel which was previously ballooned, sub-2 mm vessel. The proximal portion has a 20% to 30% stenosis and then a second daught er branch just below that has a 30 to 40% stenosis with good excellent flow. The right coronary art aris proximally is a 3.5 mm vessel and has a 70% stenosis in the proximal portion and a 90% stenosis in its mid portion, and distally in the posterolateral branch there exists a 40% to 50% stenosis, ho wever, it is a sub-2 mm vessel. Measurement of left ventricular end-diastolic pressure of 12 to 14. Possible mild aortic stenosis b y gradient. PTCA AND STENT PLACEMENT: Prior to PTCA and stent placement of the right coronary artery, there was a 90% mid distal lesion and a 70% proximal lesion. Post-PTCA and stent placement, there was no res idual lesion in either place, KENNETH 3 flow throughout the vessel and no signs of complication includi ng perforation or dissection. TOTAL FLUOROSCOPY TIME: 9.9 minutes. TOTAL CONTRAST: 100 mL. IMPRESSION: 1. Single-vessel obstructive coronary artery disease involving tandem lesions right coronary artery , status post successful percutaneous transluminal coronary angioplasty and stent placement x2 with drug-eluting stents. 2. Intermediate stenosis in the left anterior descending. 3. Normal left heart filling pressures. 4. No significant aortic stenosis by gradient. RECOMMENDATIONS: In light of procedure and findings at this time would: 1. Maintain the patient on Plavix 75 mg 1 tab p.o. daily x1 year. 2. Aspirin 325 mg 1 tab p.o. daily indefinitely. 3. Maximize medical management. 4. Aggressive risk factor reduction. 5. The patient will be admitted to the ICU for post-intervention observation and continued manageme nt of symptoms with probable discharge the following day. Dictated By: MARIANNA COWAN/MORALES Conf#: [id number] DID#: [id number] CC: SHERINE MARTINES MD;*EndCC*
--- NOTE | 2017-01-31 14:17 | CONS ---
Date/Time of Note Date/Time of Note DATE: 01/31/17 TIME: 14:13 Assessment/Plan Assessment/Plan Chief Complaint/Hosp Course IMPRESSION: 1. Chest pain, assess for acute coronary syndrome.-negative troponin x3/NL EF by echo. Lexiscan positive for ischemia-anterior 2. History of percutaneous transluminal coronary angioplasty and stent placement October 2015 with drug-eluting stent to diagonal.-negative troponin x 3. Now post-op s/p PTCA /stent x 2 to RCA 3. Hypertension. 4. Dyslipidemia. 5. History of myocardial infarction in October 2015. Recc: -Tele/NCL-xjow-dyusy -serial ecg's -Continue asa/plavix/statin/BB Problems: Consultation Date/Type/Reason Admit Date/Time Jan 29, 2017 at 00:08 Initial Consult Date 01/29/2017 Type of Consultation: Cardiology Reason for Consultation Chest pain Referring Provider: ADAM GOVEA MD Exam/Review of Systems Vital Signs Vitals Vital Signs Date Time Temp Pulse Resp B/P Pulse Ox O2 Delivery O2 Flow Rate FiO2 01/31/17 13:10 80 25 138/96 98 Nasal Cannula 2.0 01/31/17 11:01 98.2 Intake and Output 01/30/17 01/30/17 01/31/17 15:00 23:00 07:00 Intake Total 750 ml 400 ml Balance 750 ml 400 ml Exam Review of Systems: CONSTITUTIONAL: No fevers, chills. PULMONARY: No sob CARDIOVASCULAR: No chest pain/palpitations GASTROINTESTINAL: No nausea/vomiting. GENITOURINARY: No hematuria/dysuria. MUSCULOSKELETAL: No myagias/arthalgias. PSYCHIATRIC: The patient denies depression. NEUROLOGIC: No weakness Constitutional: alert Psych: no complaints Head: normocephalic ENMT: mucosa pink and moist Neck: jvd (9 cm water), supple Respiratory: diminished breath sounds (at bases/B) Cardiovascular: regular rate and rhythm Gastrointestinal: non-tender, soft Musculoskeletal: muscle tone (normal) Extremities: edema (none) Neurological: other (No focal deficits) Results Result Diagram: 01/29/17 0525 01/29/17 0525 Medications Medications Current Medications Ondansetron HCl (Zofran Tab) 4 mg Q6H PRN PO NAUSEA AND/OR VOMITING; Start 01/29 at 03:30 Metoclopramide HCl (Reglan) 10 mg Q6H PRN IV NAUSEA AND/OR VOMITING Last administered on 01/29/17 07:59; Admin Dose 10 MG; Start 01/29/17 at 03:30 Nitroglycerin (Nitroglycerin (Sl Tab) 0.4 Mg) 1 tab Q5M PRN SL CHEST PAIN; Start 01/29/17 at 03:30 Acetaminophen (Tylenol Tab) 650 mg Q6H PRN PO PAIN LEVEL 1-3 OR FEVER Last administered on 01/29/17 16:09; Admin Dose 650 MG; Start 01/29/17 at 03:30 Enoxaparin Sodium (Lovenox) 40 mg DAILY SC Last administered on 01/30/17 09:12 ; Admin Dose 40 MG; Start 01/29/17 at 09:00 Famotidine (Pepcid) 20 mg BID PO Last administered on 01/30/17 20:52; Admin Dose 20 MG; Start 01/29/17 at 12:00 Aspirin (Halfprin) 81 mg DAILY PO Last administered on 01/30/17 17:27; Admin Dose 81 MG; Start 01/30/17 at 09:00 Atorvastatin Calcium (Lipitor) 40 mg HS PO Last administered on 01/30/17 20:52 ; Admin Dose 40 MG; Start 01/29/17 at 21:00 Clopidogrel Bisulfate (plaVIX) 75 mg DAILY PO Last administered on 01/30/17 17: 26; Admin Dose 75 MG; Start 01/30/17 at 09:00 Metoprolol Tartrate (Lopressor) 25 mg BID PO Last administered on 01/30/17 17: 27; Admin Dose 25 MG; Start 01/29/17 at 12:00 Acetaminophen (Tylenol Tab) 650 mg Q4H PRN PO NON-CARDIAC PAIN LEVEL 1-3; Start 01/31/17 at 11:00 Oxycodone/ Acetaminophen (Percocet (5/ 325)) 1 tab Q4H PRN PO REPORTED NON- CARDIAC PAIN 4-7; Start 01/31/17 at 11:00 Morphine Sulfate 1 mg 1 mg Q1H PRN IV PAIN NOT RELIEVED BY OTHERS; Start at 11:00 Sodium Chloride (NS) 1,000 ml @ 75 mls/hr [id number] IV ; Start 01/31/17 at 10:52; Stop 02/01/17 at 00:11 MARIANNA ECHOLS Jan 31, 2017 14:17
[2017-01-31] MEDS: morphine 2 MG INJ IV PRN ×2 (15:10→19:02)
--- NOTE | 2017-01-31 15:29 | RADRPT ---
Vent Rate: 83 bpm RR Interval: 0 msec PA Interval: 166 msec QRS Duration: 104 msec QT Interval: 392 msec QTC Interval: 460 msec P-R-T [place]: 58 - 56 - 66 degrees Normal sinus rhythm Normal ECG Electronically Signed By: Yoel Dangelo [id number]
--- NOTE | 2017-01-31 15:36 | RADRPT ---
Vent Rate: 60 bpm RR Interval: 0 msec [place] Interval: 164 msec QRS Duration: 108 msec QT Interval: 416 msec QTC Interval: 416 msec P-R-T [place]: 61 - 48 - 74 degrees Normal sinus rhythm Inverted T in aVL Abnormal ECG Electronically Signed By: Yoel Dangelo [id number]
--- NOTE | 2017-01-31 16:20 | PN ---
Date/Time of Note Date/Time of Note DATE: 01/31/17 TIME: 16:18 Assessment/Plan VTE Prophylaxis VTE Prophylaxis Intervention: SCD's Lines/Catheters IV Catheter Type (from Nrsg): Peripheral IV Assessment/Plan Assessment/Plan 1. Chest pain r/o ACS * Stress test was abnomal * Angiogram done today 2. Dyslipidemia: cont statin 3. Obesity: calorie controlled diet Cont supportive care Propylaxis: lovenox / pepcid Subjective 24 Hr Interval Summary Free Text/Dictation no new issues s/p cath in am. being observed in ICU post cath Exam/Review of Systems Vital Signs Vitals Vital Signs Date Time Temp Pulse Resp B/P Pulse Ox O2 Delivery O2 Flow Rate FiO2 01/31/17 13:10 80 25 138/96 98 Nasal Cannula 2.0 01/31/17 11:01 98.2 Intake and Output 01/30/17 01/30/17 01/31/17 15:00 23:00 07:00 Intake Total 750 ml 400 ml Balance 750 ml 400 ml Exam Constitutional: alert, obese, oriented Head: atraumatic, normocephalic Eyes: PERRL ENMT: mucosa pink and moist Neck: supple Respiratory: clear to auscultation, normal air movement Cardiovascular: nl pulses, regular rate and rhythm Gastrointestinal: bowel sounds, non-tender, soft Extremities: No edema Neurological: nl mental status, nl speech, nl strength Results Result Diagram: 01/29/17 0525 01/29/17 0525 Medications Medications Current Medications Ondansetron HCl (Zofran Tab) 4 mg Q6H PRN PO NAUSEA AND/OR VOMITING; Start 01/29 at 03:30 Metoclopramide HCl (Reglan) 10 mg Q6H PRN IV NAUSEA AND/OR VOMITING Last administered on 01/29/17 07:59; Admin Dose 10 MG; Start 01/29/17 at 03:30 Nitroglycerin (Nitroglycerin (Sl Tab) 0.4 Mg) 1 tab Q5M PRN SL CHEST PAIN; Start 01/29/17 at 03:30 Acetaminophen (Tylenol Tab) 650 mg Q6H PRN PO PAIN LEVEL 1-3 OR FEVER Last administered on 01/29/17 16:09; Admin Dose 650 MG; Start 01/29/17 at 03:30 Enoxaparin Sodium (Lovenox) 40 mg DAILY SC Last administered on 01/30/17 09:12 ; Admin Dose 40 MG; Start 01/29/17 at 09:00 Famotidine (Pepcid) 20 mg BID PO Last administered on 01/30/17 20:52; Admin Dose 20 MG; Start 01/29/17 at 12:00 Aspirin (Halfprin) 81 mg DAILY PO Last administered on 01/30/17 17:27; Admin Dose 81 MG; Start 01/30/17 at 09:00 Atorvastatin Calcium (Lipitor) 40 mg HS PO Last administered on 01/30/17 20:52 ; Admin Dose 40 MG; Start 01/29/17 at 21:00 Clopidogrel Bisulfate (plaVIX) 75 mg DAILY PO Last administered on 01/30/17 17: 26; Admin Dose 75 MG; Start 01/30/17 at 09:00 Metoprolol Tartrate (Lopressor) 25 mg BID PO Last administered on 01/30/17 17: 27; Admin Dose 25 MG; Start 01/29/17 at 12:00 Acetaminophen (Tylenol Tab) 650 mg Q4H PRN PO NON-CARDIAC PAIN LEVEL 1-3; Start 01/31/17 at 11:00 Oxycodone/ Acetaminophen (Percocet (5/ 325)) 1 tab Q4H PRN PO REPORTED NON- CARDIAC PAIN 4-7; Start 01/31/17 at 11:00 Morphine Sulfate 1 mg 1 mg Q1H PRN IV PAIN NOT RELIEVED BY OTHERS Last administered on 01/31/17 15:10; Admin Dose 1 MG; Start 01/31/17 at 11:00 Sodium Chloride (NS) 1,000 ml @ 75 mls/hr [id number] IV ; Start 01/31/17 at 10:52; Stop 02/01/17 at 00:11 SHERINE MARTINES Jan 31, 2017 16:20
[2017-01-31] MEDS: ATORVASTATIN 40 MG TAB PO SCH (20:34)
[2017-02-01] VITALS (22 sets, daily range): BP systolic 96–143; BP diastolic 58–101; PULSE 57–85; RESP 0–23
[2017-02-01 04:49] LABS: ADD SCAN DIFF NO
[2017-02-01 05:17] LABS: BASOPHILS % 0.2 % (0.0-2.0); EOSINOPHILS # 0.1 10^3/ul (0.0-0.5); EOSINOPHILS % 1.4 % (0.0-7.0); HEMATOCRIT 39.4 % (42.0-52.0); HEMOGLOBIN 13.2 g/dl (14.0-18.0); LYMPHOCYTES # 1.8 10^3/ul (0.8-2.9); MEAN CORPUSCULAR HEMOGLOBIN 30.1 pg (29.0-33.0); MEAN CORPUSCULAR HGB CONC 33.5 g/dl (32.0-37.0); MEAN PLATELET VOLUME 8.3 fl (7.4-10.4); MONOCYTE # 0.7 10^3/ul (0.3-0.9); MONOCYTES % 7.5 % (0.0-11.0); NEUTROPHIL # 6.2 10^3/ul (1.6-7.5); NEUTROPHILS % 70.6 % (39.0-77.0); PLATELET COUNT 236 10^3/UL (140-415); RED BLOOD COUNT 4.38 10^6/ul (4.70-6.10); WHITE BLOOD COUNT 8.8 10^3/ul (4.8-10.8)
[2017-02-01 05:27] LABS: CREATININE 0.84 mg/dl (0.61-1.24)
[2017-02-01 05:28] LABS: CALCIUM 8.3 mg/dl (8.4-10.2); CHOL/HDL RATIO 3.1 RATIO
[2017-02-01 05:37] LABS: CK-MB 3.04 ng/ml (0.0-2.4)
[2017-02-01 08:00] LABS: TROPONIN-I 0.521 ng/ml (0.00-0.12)
[2017-02-01] MEDS: METOPROLOL 25 MG TAB PO SCH (08:47)
[2017-02-01] MEDS: FAMOTIDINE 20 MG TAB PO SCH (08:47)
[2017-02-01] MEDS: ASPIRIN (EC) 81 MG TAB PO SCH (08:47)
[2017-02-01] MEDS: CLOPIDOGREL 75 MG TAB PO SCH (08:47)
[2017-02-01] MEDS: ENOXAPARIN 40 MG/0.4 ML SYG SC SCH (08:52)
--- NOTE | 2017-02-01 11:24 | PN ---
Date/Time of Note Date/Time of Note DATE: 02/01/17 TIME: 11:21 Assessment/Plan VTE Prophylaxis VTE Prophylaxis Intervention: LMWH Lines/Catheters IV [facility] Saline Lock Urinary Cath still in place: No Assessment/Plan Assessment/Plan 1. Chest pain r/o ACS 2. CAD s/p repeat angiogram 01/31/17 with stent x 2 to RCA and previous stent to diagonal 3. Elevated troponin likely 2/2 Cath 4. Dyslipidemia: cont statin 5. Obesity: calorie controlled diet 6. Probable PreDM, last a1c 6.5 PLAN: repeat troponin in 4 hours continue ICU care for now was planned for probable d/c today if cleared by cardio continue current regimen Prophylaxis : Lovenox / pepcid Exam/Review of Systems Vital Signs Vitals Vital Signs Date Time Temp Pulse Resp B/P Pulse Ox O2 Delivery O2 Flow Rate FiO2 02/01/17 09:00 67 15 117/71 96 Room Air 02/01/17 08:00 97.9 01/31/17 16:38 2.0 Intake and Output 01/31/17 01/31/17 02/01/17 15:00 23:00 07:00 Intake Total 0 ml 695 ml 525 ml Output Total 450 ml Balance 0 ml 245 ml 525 ml Results Result Diagram: 02/01/17 0420 02/01/17 0420 Results 24 hrs Laboratory Tests Test 02/01/17 04:20 White Blood Count 8.8 Red Blood Count 4.38 L Hemoglobin 13.2 L Hematocrit 39.4 L Mean Corpuscular Volume 90.0 Mean Corpuscular Hemoglobin 30.1 Mean Corpuscular Hemoglobin Concent 33.5 Red Cell Distribution Width 12.0 Platelet Count 236 Mean Platelet Volume 8.3 Neutrophils % 70.6 Lymphocytes % 20.0 Monocytes % 7.5 Eosinophils % 1.4 Basophils % 0.2 Nucleated Red Blood Cells % 0.0 Neutrophils # 6.2 Lymphocytes # 1.8 Monocytes # 0.7 Eosinophils # 0.1 Basophils # 0.0 Nucleated Red Blood Cells # 0.0 Sodium Level 141 Potassium Level 4.0 Chloride Level 106 Carbon Dioxide Level 27 Anion Gap 12 Blood Urea Nitrogen 13 Creatinine 0.84 Glucose Level 107 Calcium Level 8.3 L Creatine Kinase 114 Creatine Kinase Index 2.7 Creatinine Kinase MB (Mass) 3.04 H Troponin I 0.521 *H Triglycerides Level 135 Cholesterol Level 100 LDL Cholesterol, Calculated 41 # HDL Cholesterol 32 Cholesterol/HDL Ratio 3.1 Medications Medications Current Medications Ondansetron HCl (Zofran Tab) 4 mg Q6H PRN PO NAUSEA AND/OR VOMITING; Start 01/29 at 03:30 Metoclopramide HCl (Reglan) 10 mg Q6H PRN IV NAUSEA AND/OR VOMITING Last administered on 01/29/17 07:59; Admin Dose 10 MG; Start 01/29/17 at 03:30 Nitroglycerin (Nitroglycerin (Sl Tab) 0.4 Mg) 1 tab Q5M PRN SL CHEST PAIN; Start 01/29/17 at 03:30 Acetaminophen (Tylenol Tab) 650 mg Q6H PRN PO PAIN LEVEL 1-3 OR FEVER Last administered on 01/29/17 16:09; Admin Dose 650 MG; Start 01/29/17 at 03:30 Enoxaparin Sodium (Lovenox) 40 mg DAILY SC Last administered on 02/01/17 08:52 ; Admin Dose 40 MG; Start 01/29/17 at 09:00 Famotidine (Pepcid) 20 mg BID PO Last administered on 02/01/17 08:47; Admin Dose 20 MG; Start 01/29/17 at 12:00 Aspirin (Halfprin) 81 mg DAILY PO Last administered on 02/01/17 08:47; Admin Dose 81 MG; Start 01/30/17 at 09:00 Atorvastatin Calcium (Lipitor) 40 mg HS PO Last administered on 01/31/17 20:34 ; Admin Dose 40 MG; Start 01/29/17 at 21:00 Clopidogrel Bisulfate (plaVIX) 75 mg DAILY PO Last administered on 02/01/17 08: 47; Admin Dose 75 MG; Start 01/30/17 at 09:00 Metoprolol Tartrate (Lopressor) 25 mg BID PO Last administered on 02/01/17 08: 47; Admin Dose 25 MG; Start 01/29/17 at 12:00 Acetaminophen (Tylenol Tab) 650 mg Q4H PRN PO NON-CARDIAC PAIN LEVEL 1-3; Start 01/31/17 at 11:00 Oxycodone/ Acetaminophen (Percocet (5/ 325)) 1 tab Q4H PRN PO REPORTED NON- CARDIAC PAIN 4-7; Start 01/31/17 at 11:00 Morphine Sulfate (morphine) 1 mg Q1H PRN IV PAIN NOT RELIEVED BY OTHERS Last administered on 01/31/17t 19:02; Admin Dose 1 MG; Start 01/31/17 at 11:00 SHERINE MARTINES Feb 01, 2017 11:24
[2017-02-01 13:18] LABS: CK-MB 2.32 ng/ml (0.0-2.4); TROPONIN-I 0.396 ng/ml (0.00-0.12)
--- NOTE | 2017-02-01 14:30 | CONS ---
Date/Time of Note Date/Time of Note DATE: 02/01/17 TIME: 14:27 Assessment/Plan Assessment/Plan Chief Complaint/Hosp Course IMPRESSION: 1. Chest pain, assess for acute coronary syndrome.-negative troponin x3/NL EF by echo. Lexiscan positive for ischemia-anterior 2. History of percutaneous transluminal coronary angioplasty and stent placement October 2015 with drug-eluting stent to diagonal.-negative troponin x 3. Now post-op s/p PTCA /stent x 2 to RCA 3. Hypertension. 4. Dyslipidemia. 5. History of myocardial infarction in October 2015. Recc: -Tele monitoring -Continue asa/plavix/statin/BB at d/c -D/C planning with outpatient f/u 2-3 weeks. Gave him my card again for contact info Problems: Consultation Date/Type/Reason Admit Date/Time Jan 29, 2017 at 00:08 Initial Consult Date 01/29/2017 Type of Consultation: Cardiology Reason for Consultation chest pain Referring Provider: ADAM GOVEA MD Exam/Review of Systems Vital Signs Vitals Vital Signs Date Time Temp Pulse Resp B/P Pulse Ox O2 Delivery O2 Flow Rate FiO2 02/01/17 12:00 76 02/01/17 09:00 15 117/71 96 Room Air 02/01/17 08:00 97.9 01/31/17 16:38 2.0 Intake and Output 01/31/17 01/31/17 02/01/17 15:00 23:00 07:00 Intake Total 0 ml 695 ml 525 ml Output Total 450 ml Balance 0 ml 245 ml 525 ml Exam Review of Systems: CONSTITUTIONAL: No fevers, chills. PULMONARY: No sob CARDIOVASCULAR: No chest pain/palpitations GASTROINTESTINAL: No nausea/vomiting. GENITOURINARY: No hematuria/dysuria. MUSCULOSKELETAL: No myagias/arthalgias. PSYCHIATRIC: The patient denies depression. NEUROLOGIC: No weakness Constitutional: alert Psych: no complaints Head: normocephalic ENMT: mucosa pink and moist Neck: jvd, supple Respiratory: diminished breath sounds Cardiovascular: regular rate and rhythm Gastrointestinal: non-tender, soft Musculoskeletal: muscle tone (normal) Extremities: edema (none) Neurological: other (No focal deficits) Results Result Diagram: 02/01/170 02/01/17419 Results 24 hrs Laboratory Tests Test 02/01/17 04:20 02/01/17 12:45 White Blood Count 8.8 Red Blood Count 4.38 L Hemoglobin 13.2 L Hematocrit 39.4 L Mean Corpuscular Volume 90.0 Mean Corpuscular Hemoglobin 30.1 Mean Corpuscular Hemoglobin Concent 33.5 Red Cell Distribution Width 12.0 Platelet Count 236 Mean Platelet Volume 8.3 Neutrophils % 70.6 Lymphocytes % 20.0 Monocytes % 7.5 Eosinophils % 1.4 Basophils % 0.2 Nucleated Red Blood Cells % 0.0 Neutrophils # 6.2 Lymphocytes # 1.8 Monocytes # 0.7 Eosinophils # 0.1 Basophils # 0.0 Nucleated Red Blood Cells # 0.0 Sodium Level 141 Potassium Level 4.0 Chloride Level 106 Carbon Dioxide Level 27 Anion Gap 12 Blood Urea Nitrogen 13 Creatinine 0.84 Glucose Level 107 Hemoglobin A1c 5.7 Calcium Level 8.3 L Creatine Kinase 114 116 Creatine Kinase Index 2.7 2.0 Creatinine Kinase MB (Mass) 3.04 H 2.32 Troponin I 0.521 *H 0.396 *H Triglycerides Level 135 Cholesterol Level 100 LDL Cholesterol, Calculated 41 # HDL Cholesterol 32 Cholesterol/HDL Ratio 3.1 Medications Medications Current Medications Ondansetron HCl (Zofran Tab) 4 mg Q6H PRN PO NAUSEA AND/OR VOMITING; Start 01/29 at 03:30 Metoclopramide HCl (Reglan) 10 mg Q6H PRN IV NAUSEA AND/OR VOMITING Last administered on 01/29/17 07:59; Admin Dose 10 MG; Start 01/29/17 at 03:30 Nitroglycerin (Nitroglycerin (Sl Tab) 0.4 Mg) 1 tab Q5M PRN SL CHEST PAIN; Start 01/29/17 at 03:30 Acetaminophen (Tylenol Tab) 650 mg Q6H PRN PO PAIN LEVEL 1-3 OR FEVER Last administered on 01/29/17 16:09; Admin Dose 650 MG; Start 01/29/17 at 03:30 Enoxaparin Sodium (Lovenox) 40 mg DAILY SC Last administered on 02/01/17 08:52 ; Admin Dose 40 MG; Start 01/29/17 at 09:00 Famotidine (Pepcid) 20 mg BID PO Last administered on 02/01/17 08:47; Admin Dose 20 MG; Start 01/29/17 at 12:00 Aspirin (Halfprin) 81 mg DAILY PO Last administered on 02/01/17 08:47; Admin Dose 81 MG; Start 01/30/17 at 09:00 Atorvastatin Calcium (Lipitor) 40 mg HS PO Last administered on 01/31/17 20:34 ; Admin Dose 40 MG; Start 01/29/17 at 21:00 Clopidogrel Bisulfate (plaVIX) 75 mg DAILY PO Last administered on 02/01/17 08: 47; Admin Dose 75 MG; Start 01/30/17 at 09:00 Metoprolol Tartrate (Lopressor) 25 mg BID PO Last administered on 02/01/17 08: 47; Admin Dose 25 MG; Start 01/29/17 at 12:00 Acetaminophen (Tylenol Tab) 650 mg Q4H PRN PO NON-CARDIAC PAIN LEVEL 1-3; Start 01/31/17 at 11:00 Oxycodone/ Acetaminophen (Percocet (5/ 325)) 1 tab Q4H PRN PO REPORTED NON- CARDIAC PAIN 4-7; Start 01/31/17 at 11:00 Morphine Sulfate (morphine) 1 mg Q1H PRN IV PAIN NOT RELIEVED BY OTHERS Last administered on 01/31/17 19:02; Admin Dose 1 MG; Start 01/31/17 at 11:00 MARIANNA ECHOLS Feb 01, 2017 14:30
--- NOTE | 2017-02-01 14:48 | PDOCDIS ---
Discharge Instructions DIAGNOSIS Discharge Diagnosis: Coronary artery disease CONDITION Patient Condition: Stable HOME CARE INSTRUCTIONS: Special Diet: 1800 ADA /low fat/low cholesterol ACTIVITY: Activity Restrictions: Slowly Increase Activity Rest between Activity FOLLOW UP/APPOINTMENTS Appointments Call Dr Nguyen's office for followup Name, Degree: Charles Perez MD Specialty: Cardiology Comments: Office Address: [address] [place] [id number] Office Office also Followup with your primary doctor within the next 1-2 weeks. If you don't have one please let someone know, we can give you resources that may help you pick one. You may call Dr Matty Pinon's office. he's accepting new patients Name, Degree: Matty Pinon MD Specialty: Internal Medicine Comments: Office Address: [address] [place] [id number] Office Office You may also call your insurance company to assign one to you. Review your medication list with your nurse before leaving and if you need new prescriptions please let your nurse know. I may have made changes to your home medications or given you new prescriptions , please let your primary doctor know as well. Stay compliant with your medications and report any side effects to your PCP or pharmacist. Return to the ER if you have any concerns and cannot reach your doctors or call your insurance company, they usually have a nurse that can help you. SHERINE MARTINES Feb 01, 2017 14:48
[2017-02-01] MEDS ORDERED: METO-448 PO (14:52)
--- NOTE | 2017-02-02 03:46 | DS ---
DATE OF ADMISSION: 01/29/2017 DATE OF DISCHARGE: 02/01/2017 ADMISSION DIAGNOSES: 1. Chest pain, rule out acute coronary syndrome. 2. Dyslipidemia. 3. Known coronary artery disease status post PCI in the past. 4. Obesity. FINAL DIAGNOSES 1. Chest pain, now resolved. 2. Lexiscan positive for anterior ischemia. 3. History of percutaneous transluminal coronary angioplasty and stent placement in 10/[address] [place]-eluting stent to the diagonal. 4. Now Postop PTCA-stents x2 to the right coronary artery (coronary artery disease). 5. Hypertension with good control. 6. Dyslipidemia. 7. History of myocardial infarction in October 2015. 8. Obesity. CONSULTS ON THE CASE: Dr. Charles Perez. DIET: I recommended diet low cholesterol, low fat. DISCHARGE CONDITION: Stable. DISCHARGE MEDICATIONS: 1. Lipitor 40 mg p.o. at bedtime. 2. Plavix 75 daily. 3. Nitroglycerin 1 tablet sublingual p.r.n. 4. Aspirin 81 daily. 5. Metoprolol 25 p.o. b.i.d. The patient was evaluated by myself earlier today. Please review my progress notes for details of p hysical exam and vital signs and overall time spent on reevaluation and discharge planning has been more than 40 minutes. Dictated By: SHERINE MARTINES MD, BA/NTS Conf#: [id number] DID#: [id number]
--- NOTE | 2017-02-04 10:11 | RADRPT ---
Vent Rate: 58 bpm RR Interval: 0 msec NV Interval: 162 msec QRS Duration: 106 msec QT Interval: 402 msec QTC Interval: 394 msec P-R-T [place]: 52 - 19 - 69 degrees Sinus bradycardia Otherwise normal ECG Electronically Signed By: Yoel Dangelo [id number]
== END 2017-02-01 15:50 | disposition home or self-care (01) | DRG 247 ==
LOC: E/R 18:50 → MS4 01-29 00:08 → ICU 01-31 14:15
PROVIDERS: ADMIT Family Medicine; ATTEND Family Medicine
PROC: 027035Z Dilation of Coronary Artery, One Artery with Two Drug-eluting Intraluminal Devices, Percutaneous Approach (ICD-10-PCS; principal; 2017-01-30)
PROC: 4A023N7 Measurement of Cardiac Sampling and Pressure, Left Heart, Percutaneous Approach (ICD-10-PCS; 2017-01-30)
DX: I25.10 Atherosclerotic heart disease of native coronary artery without angina pectoris (principal); I10 Essential (primary) hypertension; I25.2 Old myocardial infarction; Z95.5 Presence of coronary angioplasty implant and graft; E78.5 Hyperlipidemia, unspecified; E66.9 Obesity, unspecified; Z68.32 Body mass index [BMI] 32.0-32.9, adult
CPT/HCPCS: 36415; 71010; 78452; 80048; 80053; 80061; 82550; 82553; 83036; 83735; 83880; 84484; 85025; 85610; 85730; 87081; 93005; 93017; 93306; 93458; 96374; 96375; J1940; A9500; A9505; C1725; C1769; C1874; C1887; C9600; J0153; J0583; J1644; J1650; J2250; J2270; J2405; J2765; J2785; J3010; J7030; Q9967

== ENCOUNTER 2018-02-10 01:41 | Inpatient (IN) | END 2018-02-10 18:00 | disposition home or self-care (01) | DRG 313 ==

== ENCOUNTER 2018-09-21 13:57 | Emergency (ER) | END 2018-09-21 18:53 | disposition home or self-care (01) ==